=== PATIENT | female | born 1985 | race Caucasian/White ===

== ENCOUNTER 2020-04-25 17:47 | Emergency (ER) | payer OTHER ==
[2020-04-25 18:03] VITALS: O2SAT 98
--- NOTE | 2020-04-25 18:30 | ERPHSYRPT ---
- History of Present Illness Time Seen by Provider: 04/25/20 18:00 Source: patient Exam Limitations: no limitations Patient Subjective Stated Complaint: pt tripped this morning twisted ankle about 1000 today, she no co pain to right ankle. has abrasions to left foot and knee that she does not want checked out, numbness to 4th and 5th toes Triage Nursing Assessment: pt alert, walked in with a limp, able to place partial foot, resp easy, skin w/d/p. has strong pedal pulse, slight swelling to ankle Physician History: This is a 34-year-old white female who twisted her ankle this morning approximately 10 AM. She is concerned because she had numbness in the lateral aspect of her right ankle and foot. There is no foot pain is all in the ankle on the lateral malleolar region. Method of Injury: fell Occurred: this morning Quality: aching, throbbing Lower Extremities Pain: ankle: right Modifying Factors: Improves With: movement Associated Symptoms: other (Can bear weight but hurts to do so.) Allergies/Adverse Reactions: No Known Drug Allergies Allergy (Unverified 04/25/20 17:58) Home Medications: Duloxetine HCl 1 ea DAILY 04/25/20 [History] Erenumab-Aooe [Aimovig Autoinjector] 1 ea DAILY 04/25/20 [History] Rizatriptan Benzoate [Rizatriptan] 1 ea DAILY 04/25/20 [History] Hx Influenza Vaccination/Date Given: Yes Hx Pneumococcal Vaccination/Date Given: No Immunizations Up to Date: Yes Travel Risk - International Travel Have you traveled outside of the country in past 3 weeks: No - Coronavirus Screening Are you exhibiting any of the following symptoms?: No Close contact with a COVID-19 positive Pt in past 14-21 Days: No - Review of Systems Constitutional: No Symptoms Eyes: No Symptoms Ears, Nose, & Throat: No Symptoms Respiratory: No Symptoms Cardiac: No Symptoms Abdominal/Gastrointestinal: No Symptoms Genitourinary Symptoms: No Symptoms Musculoskeletal: Fall, Injury (Right ankle) Skin: No Symptoms Neurological: No Symptoms Psychological: No Symptoms Endocrine: No Symptoms Hematologic/Lymphatic: No Symptoms Immunological/Allergic: No Symptoms All Other Systems: Reviewed and Negative - Past Medical History Pertinent Past Medical History: Yes Neurological History: Migraines ENT History: No Pertinent History Cardiac History: No Pertinent History Respiratory History: No Pertinent History Endocrine Medical History: No Pertinent History Musculoskeletal History: No Pertinent History GI Medical History: No Pertinent History History: No Pertinent History Psycho-Social History: No Pertinent History Female Reproductive Disorders: No Pertinent History - Past Surgical History Past Surgical History: Yes Neuro Surgical History: No Pertinent History Cardiac: No Pertinent History Respiratory: No Pertinent History Gastrointestinal: No Pertinent History Genitourinary: No Pertinent History Musculoskeletal: No Pertinent History Female Surgical History: No Pertinent History Other Surgical History: ablasion - Social History Smoking Status: Never smoker Drug Use: none Patient Lives Alone: No - Female History Hx Last Menstrual Period: ablasion Hx Now: No - Nursing Vital Signs Nursing Vital Signs: Initial Vital Signs Temperature 97.6 F 04/25/20 18:00 Pulse Rate 70 04/25/20 18:00 Respiratory Rate 16 04/25/20 18:00 Blood Pressure 130/80 04/25/20 18:00 O2 Sat by Pulse Oximetry 98 04/25/20 18:00 Pain Scale Pain Intensity 3 - Physical Exam General Appearance: no apparent distress, alert Eyes, Ears, Nose, Throat Exam: normal ENT inspection, moist mucous membranes Neck Exam: normal inspection, non-tender, supple, full range of motion Cardiovascular/Respiratory Exam: chest non-tender Gastrointestinal/Abdominal Exam: non-tender Back Exam: normal inspection, normal range of motion, No CVA tenderness, No vertebral tenderness Hips Exam: bilateral: non-tender, normal inspection, normal range of motion, no evidence of injury Legs Exam: bilateral leg: non-tender, normal inspection, normal range of motion , no evidence of injury Knees Exam: bilateral knee: non-tender, normal inspection, normal range of motion, no evidence of injury Ankle Exam: right ankle: ecchymosis, soft tissue tenderness, swelling (Lateral malleoli region), left ankle: non-tender, normal inspection, normal range of motion, no evidence of injury Foot Exam: bilateral foot: non-tender, normal inspection, normal range of motion , no evidence of injury Neuro/Tendon Exam: normal sensation (Patient has normal sensation however she does feel that there is some numbness at the lateral aspect of her ankle heading towards her), normal motor functions, normal tendon functions, no evidence tendon injury Mental Status Exam: alert ( right foot laterally), oriented x 3, cooperative Skin Exam: normal color, warm, dry SpO2 Interpretation: normal SpO2: 98 O2 Delivery: Room Air Ordered Tests: Active Orders 24 hr Category Date Time Status ANKLE (3 VIEWS) Stat Exams 04/25/20 18:01 Taken - Progress Progress: unchanged Counseled pt/family regarding: diagnosis, need for follow-up, rad results - Departure Departure Disposition: Home Clinical Impression: Right ankle sprain Condition: Stable Critical Care Time: No Additional Instructions: Keep right ankle elevated above the level of her heart. Ice pack to area 3 times a day for 10 to 15 minutes at a time for the next 48 hours. Use Tylenol and ibuprofen for pain. May use the Jluis wrap for compression. Follow-up at [facility] orthopedic clinic if your symptoms of numbness and pain persist. You can walk in the orthopedic clinic at 8 AM on Monday, April 27, 2020.
[2020-04-25 19:18] VITALS: BP 124/98; PULSE 84
--- NOTE | 2020-04-25 20:59 | XRAY ---
Indication: Pain following fall. Comparison: None AP/lateral right ankle obtained. No bony, articular, or soft tissue abnormalities.
== END 2020-04-25 19:18 | disposition home or self-care (01) ==
LOC: ED 17:47
DX: S93.401A Sprain of unspecified ligament of right ankle, initial encounter (principal); X50.1XXA Overexertion from prolonged static or awkward postures, initial encounter; Y93.89 Activity, other specified; Y92.9 Unspecified place or not applicable; R58 Hemorrhage, not elsewhere classified; M25.571 Pain in right ankle and joints of right foot
CPT/HCPCS: 73610; 99283